=== PATIENT | male | born 1950 | race Caucasian/White ===

== ENCOUNTER 2021-08-27 08:48 | Outpatient (RCR) | payer MEDICARE, BC | END 2021-09-05 | disposition home or self-care (01) | LOC: PT | DX: R53.1 Weakness (principal); R26.9 Unspecified abnormalities of gait and mobility; Z86.73 Personal history of transient ischemic attack (TIA), and cerebral infarction without residual deficits ==

== ENCOUNTER 2021-09-11 14:20 | Outpatient (RCR) | payer MEDICARE, BC | END 2021-10-06 | disposition home or self-care (01) | LOC: PT | DX: R53.1 Weakness (principal); R26.9 Unspecified abnormalities of gait and mobility; Z86.73 Personal history of transient ischemic attack (TIA), and cerebral infarction without residual deficits ==

== ENCOUNTER 2021-10-08 07:50 | Outpatient (RCR) | payer MEDICARE, BC | END 2021-11-05 13:54 | disposition home or self-care (01) | LOC: PT 07:50 | DX: R53.1 Weakness (principal); R26.9 Unspecified abnormalities of gait and mobility; Z86.73 Personal history of transient ischemic attack (TIA), and cerebral infarction without residual deficits ==

== ENCOUNTER 2021-12-10 09:59 | Outpatient (RCR) | payer MEDICARE, BC | END 2022-01-06 | disposition still patient (30) | LOC: OT | DX: G47.33 Obstructive sleep apnea (adult) (pediatric) (principal); Z86.73 Personal history of transient ischemic attack (TIA), and cerebral infarction without residual deficits; R25.1 Tremor, unspecified ==